=== PATIENT | female | born 1985 | race Caucasian/White ===

== ENCOUNTER 2019-05-16 08:55 | Outpatient (CLI) | payer OTHER ==
[~2019-05-16 08:55] MED LIST: NO TOMA.
== END 2019-05-16 15:00 | disposition home or self-care (01) ==
LOC: RAD 08:55
DX: J40 Bronchitis, not specified as acute or chronic (principal); R05 Cough

== ENCOUNTER 2019-06-24 11:09 | Outpatient (CLI) | payer OTHER | END 2019-06-24 11:15 | disposition home or self-care (01) | LOC: SONOGRAMA 11:09 → MAMO-SONO 11:45 | DX: D25.9 Leiomyoma of uterus, unspecified (principal); R10.2 Pelvic and perineal pain ==